=== PATIENT | female | born 1935 | race Caucasian/White ===

== ENCOUNTER 2023-10-02 14:53 | Emergency (ER) | payer MEDICARE, OTHER ==
[~2023-10-02] VITALS: Ht 160 cm; Wt 79.4 kg
[2023-10-02] MEDS ORDERED: TDAP [DIPH/PERTUSSIS/TET] 0.5 ML VIAL IM ONE (15:53)
[2023-10-02] MEDS ORDERED: BACI/NEOM/POLY B OINT PKT 1 UDPKT PACKET ONE (15:56)
[2023-10-02] MEDS: BACI/NEOM/POLY B OINT PKT 1 UDPKT PACKET TP ONE (15:57)
[2023-10-02] MEDS: TDAP [DIPH/PERTUSSIS/TET] 0.5 ML VIAL IM ONE (15:59)
[2023-10-02 17:45] VITALS: BP 140/90; TEMP 98.4; O2SAT 97
== END 2023-10-02 17:46 | disposition home or self-care (01) ==
LOC: ER 14:55
DX: S01.01XA Laceration without foreign body of scalp, initial encounter (principal); I10 Essential (primary) hypertension; W18.2XXA Fall in (into) shower or empty bathtub, initial encounter; Y93.89 Activity, other specified; Y92.091 Bathroom in other non-institutional residence as the place of occurrence of the external cause; Y99.8 Other external cause status
CPT/HCPCS: 12001; 70450; 72125; 90471; 90715; 99285; A6403

== ENCOUNTER 2023-10-15 11:46 | Emergency (ER) | payer MEDICARE, OTHER ==
[~2023-10-15] VITALS: Ht 160 cm; Wt 71.7 kg
[2023-10-15 12:01] VITALS: BP 125/60; TEMP 98.3
[2023-10-15 12:27] VITALS: O2SAT 98
== END 2023-10-15 12:28 | disposition home or self-care (01) ==
LOC: ER 11:51
DX: S01.01XD Laceration without foreign body of scalp, subsequent encounter (principal); I10 Essential (primary) hypertension; X58.XXXD Exposure to other specified factors, subsequent encounter

== ENCOUNTER 2024-02-13 00:47 | Inpatient (IN) | payer MEDICARE, OTHER ==
[~2024-02-13] VITALS: Ht 162.6 cm; Wt 70.3 kg
[2024-02-13] VITALS (32 sets, daily range): BP systolic 80–157; BP diastolic 40–96; TEMP 96.8–98.4; O2SAT 92–100
[2024-02-13] MEDS ORDERED: ASPIRIN 325 MG TABLET ONE (01:17)
[2024-02-13] MEDS: ASPIRIN 325 MG TABLET PO ONE (01:18)
[2024-02-13] MEDS: IV NS 0.9% 1,000 ML BAG IV ONE (01:18)
[2024-02-13 01:28] LABS: BASOPHILS # (AUTO) 0.1 K/uL (0.0-0.2); BASOPHILS % (AUTO) 0.8 % (0.0-2.0); EOSINOPHILS % (AUTO) 0.7 % (0.0-6.0); HEMATOCRIT 40 % (33-45); HEMOGLOBIN 13.5 g/dL (11.5-14.8); LYMPHOCYTES # (AUTO) 1.4 K/uL (0.8-4.8); LYMPHOCYTES % (AUTO) 21.8 % (20.0-44.0); MEAN CORPUSCULAR HEMOGLOBIN 30 PG (26.0-33.0); MEAN CORPUSCULAR HGB CONC 34 g/dl (31.0-36.0); MEAN CORPUSCULAR VOLUME 89 fL (82-100); MONOCYTES # (AUTO) 0.3 K/uL (0.1-1.30); MONOCYTES % (AUTO) 4.6 % (2.0-12.0); NEUTROPHILS # (AUTO) 4.7 K/uL (1.8-8.9); NEUTROPHILS % (AUTO) 72.1 % (43.0-81.0); PLATELET COUNT (AUTO) 278 K/uL (150-450); RED BLOOD CELL COUNT(AUTO) 4.47 MIL/uL (4.0-5.2); RED CELL DISTRIBUTION WIDTH 14.3 % (11.5-15.0); WHITE BLOOD COUNT (AUTO) 6.6 K/uL (4.3-11.0)
[2024-02-13 01:43] LABS: INR 1.06 (0.91-1.10); PARTIAL THROMBOPLASTIN TIME 23.4 SEC (24.3-34.3); PROTHROMBIN TIME 11.2 SECS (9.2-11.1)
[2024-02-13 01:50] LABS: LACTIC ACID 2.8 mmol/L (0.4-2.0)
[2024-02-13 02:05] LABS: ALANINE AMINOTRANSFERASE 18 U/L (12-78); ALBUMIN 3.4 g/dL (3.4-5.0); ALKALINE PHOSPHATASE 102 U/L (46-116); ASPARTATE AMINOTRANSFERASE 15 U/L (15-37); BILIRUBIN,DIRECT 0.1 mg/dL (0.0-0.2); BILIRUBIN,TOTAL 0.5 mg/dL (0.2-1.0); CALCIUM, SERUM 8.9 mg/dL (8.5-10.1); CARBON DIOXIDE 24 mmol/L (21-32); CHLORIDE 97 mmol/L (98-107); CREATININE 1.1 mg/dL (0.6-1.3); GLUCOSE 156 mg/dL (74-106); POTASSIUM 3.1 mmol/L (3.5-5.1); SODIUM SERUM 133 mmol/L (136-145); TOTAL PROTEIN, SERUM 6.8 g/dL (6.4-8.2); UREA NITROGEN, BLOOD 15 mg/dL (7-18)
[2024-02-13] MEDS ORDERED: IOHEXOL-350 100 ML VIAL IV ONE ×2 (02:26→19:44)
[2024-02-13] MEDS ORDERED: IV NS 0.9% 250 ML IV ONE ×2 (02:26→19:44)
[2024-02-13 02:48] LABS: APPEARANCE,URINE CLEAR (CLEAR); BILIRUBIN,URINE NEGATIVE (NEGATIVE); BLOOD, URINE TRACE-INTA Ery/uL (NEGATIVE); COLOR,URINE YELLOW (YELLOW); KETONES,URINE NEGATIVE (NEGATIVE); LEUKOCYTE ESTERASE ,URINE NEGATIVE (NEGATIVE); NITRITE, URINE NEGATIVE (NEGATIVE); PROTEIN,URINE NEGATIVE (NEGATIVE); UGLUCOSE NEGATIVE (NEGATIVE); UROBILINOGEN,URINE 0.2 EU/dL (0.2)
[2024-02-13 02:53] LABS: ADD URINE CULTURE NO; BACTERIA,URINE Rare /HPF (None Seen); SQUAMOUS EPITHELIAL CELL,UR Few /HPF (None Seen); WBC,URINE 0-2 /HPF (0-3)
[2024-02-13] MEDS ORDERED: DoBUTamine 500 MG/250 ML PIGGYBACK IV ONE (03:33)
[2024-02-13] MEDS: DOBUTamine 500 MG in IV D5W 210 ML IV PRN (03:55)
[2024-02-13] MEDS ORDERED: AMIODARONE 150 MG/3 ML VIAL IV ONE (04:28)
[2024-02-13] MEDS ORDERED: PHENYLEPHRINE 10 MG/ML VIAL ONE (04:28)
[2024-02-13] MEDS ORDERED: Z GUARD REMEDY 4 OZ OINT TP PRN (04:30)
[2024-02-13] MEDS ORDERED: MAG HYDROX/AL HYDROX/SIMETH 30 ML UDC PO PRN (04:30)
[2024-02-13] MEDS ORDERED: MAGNESIUM HYDROXIDE 30 ML UDC PO PRN (04:30)
[2024-02-13] MEDS ORDERED: NITROGLYCERIN 30 GM TUBE TP PRN (04:30)
[2024-02-13] MEDS ORDERED: PHENYLEPHRINE 50 MG in IV NS 0.9% 245 ML IV PRN (04:30)
[2024-02-13] MEDS: AMIODARONE 150 MG in IV D5W 100 ML IV ONE (04:45)
[2024-02-13] MEDS ORDERED: PHENYLEPHRINE 10 MG/ML VIAL IV PRN (05:00)
[2024-02-13] MEDS: PHENYLEPHRINE 50 MG in IV NS 0.9% 245 ML IV PRN (05:13)
[2024-02-13] MEDS: AMIODARONE 450 MG in IV D5W 241 ML IV PRN (05:29)
[2024-02-13] MEDS ORDERED: METO50TA7 PO (05:43)
[2024-02-13] MEDS ORDERED: LANS30CA56 PO (05:43)
[2024-02-13] MEDS ORDERED: METO50TA16 PO (05:43)
[2024-02-13] MEDS ORDERED: ESCI10TA PO (05:43)
[2024-02-13] MEDS ORDERED: CLOP75TA15 PO (05:43)
[2024-02-13] MEDS ORDERED: SACU1TAB PO (05:43)
[2024-02-13] MEDS ORDERED: ATOR40TA PO (05:43)
[2024-02-13] MEDS ORDERED: MEMA10TA PO (05:43)
[2024-02-13] MEDS ORDERED: MECL-182 PO (05:43)
[2024-02-13 05:55] LABS: BASOPHILS % (AUTO) 0.2 % (0.0-2.0); EOSINOPHILS % (AUTO) 0.1 % (0.0-6.0); HEMATOCRIT 40 % (33-45); HEMOGLOBIN 13.5 g/dL (11.5-14.8); LYMPHOCYTES % (AUTO) 6.9 % (20.0-44.0); MEAN CORPUSCULAR HEMOGLOBIN 31 PG (26.0-33.0); MEAN CORPUSCULAR HGB CONC 34 g/dl (31.0-36.0); MEAN CORPUSCULAR VOLUME 92 fL (82-100); MONOCYTES # (AUTO) 0.7 K/uL (0.1-1.30); MONOCYTES % (AUTO) 5.1 % (2.0-12.0); NEUTROPHILS # (AUTO) 12.3 K/uL (1.8-8.9); NEUTROPHILS % (AUTO) 87.7 % (43.0-81.0); PLATELET COUNT (AUTO) 300 K/uL (150-450); RED CELL DISTRIBUTION WIDTH 13.9 % (11.5-15.0)
[2024-02-13] MEDS: POTASSIUM CHLORIDE 20 MEQ TAB.PRT.SR PO ONE ×2 (06:16→08:08)
[2024-02-13 06:44] LABS: CARBON DIOXIDE 26 mmol/L (21-32); CHLORIDE 98 mmol/L (98-107); CREATININE 1.1 mg/dL (0.6-1.3); GLUCOSE 168 mg/dL (74-106); MAGNESIUM 1.8 mg/dL (1.8-2.4); NT-PRO BNP 2504 pg/mL (0-125); PHOSPHORUS 2.8 mg/dL (2.5-4.9); SODIUM SERUM 132 mmol/L (136-145); UREA NITROGEN, BLOOD 14 mg/dL (7-18)
[2024-02-13] MEDS ORDERED: AMIODARONE 450 MG in IV D5W 241 ML IV PRN (07:00)
[2024-02-13 07:56] LABS: CHOLESTEROL 143 mg/dL (<200); HDL CHOLESTEROL 51 mg/dL (40-60); LDL 81 mg/dL (0-99); TRIGLYCERIDES 82 mg/dL (30-150)
[2024-02-13] MEDS: PANTOPRAZOLE 40 MG TABLET.DR PO SCH (08:08)
[2024-02-13] MEDS: ASPIRIN 81 MG TAB.CHEW PO SCH (08:08)
[2024-02-13] MEDS: FUROSEMIDE 20 MG/2 ML VIAL IV SCH (08:09)
[2024-02-13] MEDS: AMIODARONE HCL 200 MG TABLET PO SCH (09:00)
[2024-02-13] MEDS: Magnesium 1GM/D5W 100ML PREMIX 100 ML IV SCH (09:49)
[2024-02-13] MEDS: ATORVASTATIN 10 MG TABLET PO SCH (09:51)
[2024-02-13] MEDS ORDERED: IV NS 0.9% 500 ML IV PRN (19:00)
[2024-02-14] VITALS (20 sets, daily range): BP systolic 102–161; BP diastolic 37–115; TEMP 96.4–97.9; O2SAT 90–98
[2024-02-14 04:46] LABS: BASOPHILS % (AUTO) 0.6 % (0.0-2.0); EOSINOPHILS # (AUTO) 0.1 K/uL (0.0-0.7); EOSINOPHILS % (AUTO) 0.8 % (0.0-6.0); HEMATOCRIT 34 % (33-45); LYMPHOCYTES # (AUTO) 1.3 K/uL (0.8-4.8); LYMPHOCYTES % (AUTO) 20.4 % (20.0-44.0); MEAN CORPUSCULAR HEMOGLOBIN 31 PG (26.0-33.0); MEAN CORPUSCULAR HGB CONC 35 g/dl (31.0-36.0); MEAN CORPUSCULAR VOLUME 89 fL (82-100); MONOCYTES # (AUTO) 0.4 K/uL (0.1-1.30); MONOCYTES % (AUTO) 7.2 % (2.0-12.0); NEUTROPHILS # (AUTO) 4.4 K/uL (1.8-8.9); PLATELET COUNT (AUTO) 234 K/uL (150-450); RED BLOOD CELL COUNT(AUTO) 3.83 MIL/uL (4.0-5.2); RED CELL DISTRIBUTION WIDTH 14.1 % (11.5-15.0); WHITE BLOOD COUNT (AUTO) 6.2 K/uL (4.3-11.0)
[2024-02-14 05:12] LABS: ALANINE AMINOTRANSFERASE 19 U/L (12-78); ALKALINE PHOSPHATASE 83 U/L (46-116); ASPARTATE AMINOTRANSFERASE 40 U/L (15-37); BILIRUBIN,TOTAL 0.5 mg/dL (0.2-1.0); CALCIUM, SERUM 8.2 mg/dL (8.5-10.1); CARBON DIOXIDE 24 mmol/L (21-32); CHLORIDE 101 mmol/L (98-107); CREATININE 0.9 mg/dL (0.6-1.3); GLUCOSE 105 mg/dL (74-106); MAGNESIUM 2.2 mg/dL (1.8-2.4); PHOSPHORUS 3.5 mg/dL (2.5-4.9); POTASSIUM 3.8 mmol/L (3.5-5.1); SODIUM SERUM 134 mmol/L (136-145); TOTAL PROTEIN, SERUM 6.1 g/dL (6.4-8.2); UREA NITROGEN, BLOOD 12 mg/dL (7-18)
[2024-02-14 05:22] LABS: THYROID STIMULATING HORMONE 2.93 uIU/mL (0.358-3.74); URIC ACID 5.1 mg/dL (2.6-7.2)
[2024-02-14] MEDS: NITROGLYCERIN 0.4 MG/TAB BOTTLE SL ONE (08:28)
[2024-02-14] MEDS: NITROGLYCERIN 4.9 GM SPRAY SL ONE (08:28)
[2024-02-14] MEDS: ENOXAPARIN SODIUM 60 MG/0.6 ML DISP.SYRIN SQ SCH (10:50)
[2024-02-15] VITALS (7 sets, daily range): BP systolic 138–170; BP diastolic 59–97; TEMP 97.7–98.2; O2SAT 96–99
[2024-02-15 08:12] LABS: BASOPHILS % (AUTO) 0.4 % (0.0-2.0); HEMATOCRIT 36 % (33-45); HEMOGLOBIN 12.3 g/dL (11.5-14.8); LYMPHOCYTES # (AUTO) 1.1 K/uL (0.8-4.8); LYMPHOCYTES % (AUTO) 21.3 % (20.0-44.0); MEAN CORPUSCULAR HEMOGLOBIN 30 PG (26.0-33.0); MEAN CORPUSCULAR HGB CONC 34 g/dl (31.0-36.0); MEAN CORPUSCULAR VOLUME 89 fL (82-100); MONOCYTES # (AUTO) 0.3 K/uL (0.1-1.30); MONOCYTES % (AUTO) 5.6 % (2.0-12.0); NEUTROPHILS # (AUTO) 3.6 K/uL (1.8-8.9); NEUTROPHILS % (AUTO) 71.7 % (43.0-81.0); PLATELET COUNT (AUTO) 245 K/uL (150-450); RED BLOOD CELL COUNT(AUTO) 4.06 MIL/uL (4.0-5.2); RED CELL DISTRIBUTION WIDTH 13.8 % (11.5-15.0)
[2024-02-15 08:26] LABS: ALANINE AMINOTRANSFERASE 25 U/L (12-78); ALBUMIN 3.1 g/dL (3.4-5.0); ALKALINE PHOSPHATASE 91 U/L (46-116); ASPARTATE AMINOTRANSFERASE 34 U/L (15-37); BILIRUBIN,TOTAL 0.7 mg/dL (0.2-1.0); CALCIUM, SERUM 8.7 mg/dL (8.5-10.1); CARBON DIOXIDE 26 mmol/L (21-32); CHLORIDE 99 mmol/L (98-107); CREATININE 0.8 mg/dL (0.6-1.3); GLUCOSE 101 mg/dL (74-106); MAGNESIUM 2.1 mg/dL (1.8-2.4); PHOSPHORUS 3.9 mg/dL (2.5-4.9); POTASSIUM 3.9 mmol/L (3.5-5.1); SODIUM SERUM 134 mmol/L (136-145); TOTAL PROTEIN, SERUM 6.3 g/dL (6.4-8.2); UREA NITROGEN, BLOOD 8 mg/dL (7-18)
[2024-02-15] MEDS: METOPROLOL TARTRATE INJ 5 MG/5 ML AMPUL IVP PRN (11:56)
[2024-02-15] MEDS: VALSARTAN 80 MG TABLET PO SCH (15:38)
[2024-02-16] VITALS: BP 135/87; TEMP 98.1; O2SAT 98
[2024-02-16 04:00] VITALS: BP 169/71; TEMP 97.7; O2SAT 99
[2024-02-16 05:55] LABS: BASOPHILS % (AUTO) 0.4 % (0.0-2.0); EOSINOPHILS % (AUTO) 0.9 % (0.0-6.0); HEMATOCRIT 35 % (33-45); HEMOGLOBIN 12.3 g/dL (11.5-14.8); LYMPHOCYTES # (AUTO) 0.7 K/uL (0.8-4.8); LYMPHOCYTES % (AUTO) 15.8 % (20.0-44.0); MEAN CORPUSCULAR HEMOGLOBIN 32 PG (26.0-33.0); MEAN CORPUSCULAR HGB CONC 35 g/dl (31.0-36.0); MEAN CORPUSCULAR VOLUME 90 fL (82-100); MONOCYTES # (AUTO) 0.3 K/uL (0.1-1.30); MONOCYTES % (AUTO) 6.9 % (2.0-12.0); NEUTROPHILS # (AUTO) 3.6 K/uL (1.8-8.9); PLATELET COUNT (AUTO) 233 K/uL (150-450); RED BLOOD CELL COUNT(AUTO) 3.88 MIL/uL (4.0-5.2); RED CELL DISTRIBUTION WIDTH 13.7 % (11.5-15.0); WHITE BLOOD COUNT (AUTO) 4.7 K/uL (4.3-11.0)
[2024-02-16 06:34] LABS: ALANINE AMINOTRANSFERASE 22 U/L (12-78); ALKALINE PHOSPHATASE 88 U/L (46-116); ASPARTATE AMINOTRANSFERASE 28 U/L (15-37); BILIRUBIN,TOTAL 0.5 mg/dL (0.2-1.0); CALCIUM, SERUM 8.4 mg/dL (8.5-10.1); CARBON DIOXIDE 26 mmol/L (21-32); CHLORIDE 103 mmol/L (98-107); GLUCOSE 97 mg/dL (74-106); MAGNESIUM 2.1 mg/dL (1.8-2.4); PHOSPHORUS 3.8 mg/dL (2.5-4.9); POTASSIUM 3.6 mmol/L (3.5-5.1); SODIUM SERUM 138 mmol/L (136-145); TOTAL PROTEIN, SERUM 6.4 g/dL (6.4-8.2); UREA NITROGEN, BLOOD 6 mg/dL (7-18)
[2024-02-16 06:48] LABS: CREATININE 0.8 mg/dL (0.6-1.3)
[2024-02-16 08:00] VITALS: BP 177/72; TEMP 97.9; O2SAT 97
[2024-02-16] MEDS: hydrALAZINE HCL 50 MG TABLET PO SCH (11:11)
[2024-02-16] MEDS: ISOSORBIDE DINITRATE (20MG) 20 MG TABLET PO SCH (11:11)
[2024-02-16 12:00] VITALS: BP 170/63; TEMP 97.9; O2SAT 97
[2024-02-16 16:00] VITALS: BP 118/63; TEMP 98; O2SAT 97
[2024-02-16 20:00] VITALS: BP 140/59; TEMP 97.5; O2SAT 98
[2024-02-17 00:41] VITALS: BP 152/60; TEMP 97.9; O2SAT 97
[2024-02-17 04:38] VITALS: BP 138/52; TEMP 98.1; O2SAT 97
[2024-02-17 08:00] VITALS: BP 143/62; TEMP 98.1; O2SAT 97
[2024-02-17 12:00] VITALS: BP 128/60; TEMP 98.2; O2SAT 96
[2024-02-17 16:00] VITALS: BP 126/60; TEMP 97.6; O2SAT 97
[2024-02-17 20:00] VITALS: BP 142/52; TEMP 97.5; O2SAT 96
[2024-02-18] VITALS: BP 133/56; TEMP 97.8; O2SAT 96
[2024-02-18 04:00] VITALS: BP 147/54; TEMP 98.2; O2SAT 96
[2024-02-18 08:00] VITALS: BP 146/53; TEMP 98.2; O2SAT 97
[2024-02-18 12:00] VITALS: BP 122/44; TEMP 97.7; O2SAT 97
[2024-02-18] MEDS ORDERED: METOPROLOL TARTRATE INJ 5 MG/5 ML AMPUL IVP PRN (12:00)
[2024-02-18] MEDS: AMLODIPINE BESYLATE 5 MG TABLET PO SCH (12:30)
[2024-02-18] MEDS: NITROGLYCERIN 0.4 MG/TAB BOTTLE SL ONE (12:30)
[2024-02-18] MEDS: ACETAMINOPHEN 325 MG TABLET PO PRN (12:39)
[2024-02-18 16:00] VITALS: BP 134/44; TEMP 98.1; O2SAT 97
[2024-02-18 20:00] VITALS: BP 136/50; TEMP 97.9; O2SAT 96
[2024-02-19] VITALS: BP 142/59; TEMP 97.9; O2SAT 96
[2024-02-19 04:00] VITALS: BP 131/40; TEMP 97.9; O2SAT 96
[2024-02-19 06:47] LABS: BASOPHILS % (AUTO) 0.4 % (0.0-2.0); EOSINOPHILS # (AUTO) 0.1 K/uL (0.0-0.7); EOSINOPHILS % (AUTO) 0.7 % (0.0-6.0); HEMATOCRIT 33 % (33-45); HEMOGLOBIN 11.4 g/dL (11.5-14.8); LYMPHOCYTES # (AUTO) 1.4 K/uL (0.8-4.8); LYMPHOCYTES % (AUTO) 19.1 % (20.0-44.0); MEAN CORPUSCULAR HEMOGLOBIN 31 PG (26.0-33.0); MEAN CORPUSCULAR HGB CONC 34 g/dl (31.0-36.0); MEAN CORPUSCULAR VOLUME 89 fL (82-100); MONOCYTES # (AUTO) 0.5 K/uL (0.1-1.30); MONOCYTES % (AUTO) 7.2 % (2.0-12.0); NEUTROPHILS # (AUTO) 5.3 K/uL (1.8-8.9); NEUTROPHILS % (AUTO) 72.6 % (43.0-81.0); PLATELET COUNT (AUTO) 261 K/uL (150-450); RED CELL DISTRIBUTION WIDTH 14.3 % (11.5-15.0); WHITE BLOOD COUNT (AUTO) 7.3 K/uL (4.3-11.0)
[2024-02-19 07:03] LABS: CALCIUM, SERUM 9.3 mg/dL (8.5-10.1); CARBON DIOXIDE 22 mmol/L (21-32); CHLORIDE 100 mmol/L (98-107); GLUCOSE 109 mg/dL (74-106); POTASSIUM 4.2 mmol/L (3.5-5.1); SODIUM SERUM 133 mmol/L (136-145); UREA NITROGEN, BLOOD 11 mg/dL (7-18)
[2024-02-19 08:00] VITALS: BP 144/61; TEMP 98.4; O2SAT 98
[2024-02-19] MEDS: SACUBITRIL/VALSARTAN 24/26MG TABLET PO SCH (10:54)
[2024-02-19] MEDS: METOPROLOL TARTRATE 50 MG TABLET PO SCH (10:55)
[2024-02-19 12:00] VITALS: BP 135/54; TEMP 97.3; O2SAT 98
[2024-02-19 16:00] VITALS: BP 105/48; TEMP 98.6; O2SAT 97
[2024-02-19] MEDS: MEMANTINE HCL 5 MG TABLET PO SCH (16:50)
[2024-02-19] MEDS ORDERED: METOPROLOL SUCCINATE 50 MG TAB.SR.24H PO SCH (17:00)
[2024-02-19] MEDS: ATORVASTATIN 40 MG TABLET PO SCH (17:01)
[2024-02-19 20:00] VITALS: BP 117/48; TEMP 97.7; O2SAT 98
[2024-02-20] VITALS: BP 125/47; TEMP 98.1; O2SAT 98
[2024-02-20 04:00] VITALS: BP 99/37; TEMP 97.5; O2SAT 99
[2024-02-20 07:21] LABS: BASOPHILS % (AUTO) 0.4 % (0.0-2.0); EOSINOPHILS # (AUTO) 0.1 K/uL (0.0-0.7); EOSINOPHILS % (AUTO) 0.9 % (0.0-6.0); HEMATOCRIT 36 % (33-45); HEMOGLOBIN 12.3 g/dL (11.5-14.8); LYMPHOCYTES % (AUTO) 17.3 % (20.0-44.0); MEAN CORPUSCULAR HEMOGLOBIN 31 PG (26.0-33.0); MEAN CORPUSCULAR HGB CONC 34 g/dl (31.0-36.0); MEAN CORPUSCULAR VOLUME 92 fL (82-100); MONOCYTES # (AUTO) 0.4 K/uL (0.1-1.30); MONOCYTES % (AUTO) 6.8 % (2.0-12.0); NEUTROPHILS # (AUTO) 4.3 K/uL (1.8-8.9); NEUTROPHILS % (AUTO) 74.6 % (43.0-81.0); PLATELET COUNT (AUTO) 288 K/uL (150-450); RED BLOOD CELL COUNT(AUTO) 3.97 MIL/uL (4.0-5.2); RED CELL DISTRIBUTION WIDTH 14.9 % (11.5-15.0); WHITE BLOOD COUNT (AUTO) 5.8 K/uL (4.3-11.0)
[2024-02-20 07:56] LABS: CARBON DIOXIDE 22 mmol/L (21-32); CHLORIDE 100 mmol/L (98-107); CREATININE 0.9 mg/dL (0.6-1.3); GLUCOSE 106 mg/dL (74-106); POTASSIUM 4.2 mmol/L (3.5-5.1); SODIUM SERUM 133 mmol/L (136-145); UREA NITROGEN, BLOOD 10 mg/dL (7-18)
[2024-02-20 08:00] VITALS: BP 140/62; TEMP 98.1; O2SAT 97
[2024-02-20] MEDS: ESCITALOPRAM OXALATE (10 MG) 10 MG TABLET PO SCH (08:43)
[2024-02-20] MEDS: CLOPIDOGREL BISULFATE 75 MG TABLET PO SCH (08:46)
[2024-02-20 09:22] LABS: INR 1.03 (0.91-1.10); PROTHROMBIN TIME 10.9 SECS (9.2-11.1)
[2024-02-20 12:00] VITALS: BP 119/49; TEMP 97.7; O2SAT 98
[2024-02-20] MEDS ORDERED: IV NS 0.9% 1,000 ML ONE (14:22)
[2024-02-20] MEDS ORDERED: IV SET PRIMARY PUMP SET 1 EA INFUS.SET MC ONE (14:22)
[2024-02-20] MEDS ORDERED: NITROGLYCERIN IN 5 % DEXTROSE 0 ML IV ONE (14:23)
[2024-02-20] MEDS ORDERED: IODIXANOL 0 ML IV ONE (14:23)
[2024-02-20] MEDS ORDERED: LIDOCAINE HCL/MPF 1% 30 ML VIAL IJ ONE (14:23)
[2024-02-20 16:00] VITALS: BP 125/50; TEMP 98.2; O2SAT 97
[2024-02-20 20:00] VITALS: BP 122/56; TEMP 96.8; O2SAT 98
[2024-02-21] VITALS: BP 112/50; TEMP 97.9; O2SAT 98
[2024-02-21 04:00] VITALS: BP 117/42; TEMP 98.2; O2SAT 96
[2024-02-21 08:00] VITALS: BP 130/49; TEMP 97.7; O2SAT 97
[2024-02-21] MEDS ORDERED: ISOS20TA8 PO (09:29)
[2024-02-21] MEDS ORDERED: AMIO200T7 PO (09:29)
[2024-02-21] MEDS ORDERED: AMLO-212 PO (09:29)
[2024-02-21] MEDS ORDERED: HYDR-4077 PO (09:29)
[2024-02-21] MEDS ORDERED: ASPI-1169 PO (09:29)
[2024-02-21] MEDS ORDERED: APIX5TAB PO (10:39)
[2024-02-21 12:00] VITALS: BP 118/74; TEMP 97.3; O2SAT 100
== END 2024-02-21 14:10 | disposition home health service (06) | DRG 281 ==
LOC: ER 00:51 → ICU 03:48 → TELE1 02-14 14:23
PROVIDERS: ADMIT Nurse Practitioner Family; ATTEND Internal Medicine
DX: I48.0 Paroxysmal atrial fibrillation (principal); E22.2 Syndrome of inappropriate secretion of antidiuretic hormone; I21.A1 Myocardial infarction type 2; E87.20 Acidosis, unspecified; E66.9 Obesity, unspecified; E87.6 Hypokalemia; I25.10 Atherosclerotic heart disease of native coronary artery without angina pectoris; I25.2 Old myocardial infarction; I27.20 Pulmonary hypertension, unspecified; Z86.73 Personal history of transient ischemic attack (TIA), and cerebral infarction without residual deficits; I95.9 Hypotension, unspecified; R55 Syncope and collapse; E86.1 Hypovolemia; Z68.26 Body mass index [BMI] 26.0-26.9, adult; R74.8 Abnormal levels of other serum enzymes; Z53.9 Procedure and treatment not carried out, unspecified reason; R73.9 Hyperglycemia, unspecified
CPT/HCPCS: 36415; 71045-TC; 80048-TC; 80053-TC; 80061-TC; 80076-TC; 81001; 83605-TC; 83735-TC; 83880; 84100-TC; 84443-TC; 84484-TC; 84550-TC; 85025-TC; 85378-TC; 85610-TC; 85730-TC; 87040-TC; 87081-TC; 87086-TC; 93307-TC; 93880-TC; 93970-TC; 97110-TC; 97116-TC; 97530-TC; A4223; G0378; J0282; J1250; J1644; J1650; J1940; J3475; J3490; J7030; J7040; J7050; J7060; Q9967